=== PATIENT | female | born 1945 | race Caucasian/White ===

== ENCOUNTER 2020-10-28 20:24 | Emergency (ER) | payer MEDICARE, MEDICAID ==
[2020-10-28] MEDS ORDERED: Fluconazole 100 MG Tab PO ONE (20:51)
[2020-10-28] MEDS ORDERED: Famotidine 20 MG Tab PO ONE (20:52)
--- NOTE | 2020-10-28 21:38 | EDM.PDOC ---
ED HPI GENERAL MEDICAL PROBLEM - General Stated Complaint: POSSIBLE UTI Time Seen by Provider: 10/28/20 20:25 Source of Information: Reports: Patient History Limitations: Reports: No Limitations - History of Present Illness INITIAL COMMENTS - FREE TEXT/NARRATIVE: Pt. presents to ER with complaints of burning with urination that has been going on for several weeks. Pt. states that she has a history of UTIs in the past, unknown when the last time was. She states that the urine is malodorous and dark in color. She states that she feels chilled, but has not been checking her temp. Pt. denies any nausea, vomiting, or diarrhea. Pt. was treated for a sinus infection with doxycycline earlier in the month. Pt. states that she has also been experiencing intermittent acidic taste in her mouth and burning in her throat. She states she states that this has been going on for months and has not addressed it with her PCP. She states that she takes water and baking soda sometimes for it and states that it helps occasionally. She states that she has not taken any over the counter medications for GERD or acid reflux. Pt. denies any substernal chest pain, jaw, arm, neck or back pain. No diaphoresis. No lightheadedness or palpitations. Complains of intermittent headache. Denies any syncope or vertigo. No bloody stools. Onset: Today Onset Date: 10/28/20 - Related Data Allergies Allergy/AdvReac Type Severity Reaction Status Date / Time Penicillins Allergy Diarrhea Verified 10/28/20 20:34 ED ROS GENERAL - Review of Systems Review Of Systems: See Below Constitutional: Reports: No Symptoms HEENT: Reports: No Symptoms Respiratory: Reports: No Symptoms Cardiovascular: Reports: No Symptoms Endocrine: Reports: No Symptoms GI/Abdominal: Reports: Other (See HPI) : Reports: Dysuria Musculoskeletal: Reports: No Symptoms Skin: Reports: No Symptoms Neurological: Reports: No Symptoms Psychiatric: Reports: No Symptoms Hematologic/Lymphatic: Reports: No Symptoms Immunologic: Reports: No Symptoms ED EXAM, GENERAL - Physical Exam Exam: See Below Exam Limited By: No Limitations General Appearance: Alert, WD/WN, No Apparent Distress Head: Atraumatic, Normocephalic Neck: Normal Inspection, Supple, Non-Tender, Full Range of Motion Respiratory/Chest: No Respiratory Distress, Lungs Clear, Normal Breath Sounds, No Accessory Muscle Use, Chest Non-Tender Cardiovascular: Normal Peripheral Pulses, Regular Rate, Rhythm, No Edema, No JVD GI/Abdominal: Soft, Non-Tender, No Distention, No Mass (Female) Exam: Other (erythema to labia majora and scant amount of white, curd-like discharge noted.) Extremities: Normal Inspection, Normal Range of Motion, Non-Tender, No Pedal Edema, Normal Capillary Refill Course - Orders/Labs/Meds Meds: Medications Discontinued Medications Generic Name Dose Route Start Last Admin Trade Name Louis PRN Reason Stop Dose Admin Famotidine 20 mg 10/28/20 20:52 10/28/20 20:58 Famotidine 20 Mg Tab PO 10/28/20 20:53 20 mg ONETIME ONE Administration Fluconazole 150 mg 10/28/20 20:51 10/28/20 20:58 Fluconazole 100 Mg Tab PO 10/28/20 20:52 150 mg ONETIME ONE Administration Departure - Departure Time of Disposition: 21:15 Disposition: Home, Self-Care 01 Clinical Impression: Vulvovaginal candidiasis - Discharge Information Instructions: Vaginal Yeast Infection, Adult Referrals: Rogelio Dover [facility] [Primary Care Provider] - - Assessment/Plan Plan: The dose of diflucan we gave you should take care of the yeast infection. Pepcid 20mg twice daily. Recheck in clinic in 7-10 days, sooner if not gradually improving.
== END 2020-10-28 21:06 | disposition home or self-care (01) ==
LOC: VM.ED 20:24
DX: B37.3 Candidiasis of vulva and vagina (principal); Z88.0 Allergy status to penicillin
CPT/HCPCS: 81002; 99283; A9270

== ENCOUNTER 2020-12-09 18:00 | Emergency (ER) | payer MEDICARE, MEDICAID ==
--- NOTE | 2020-12-09 19:21 | EDM.PDOC ---
ED HPI GENERAL MEDICAL PROBLEM - General Chief Complaint: General Stated Complaint: INFECTION Time Seen by Provider: 12/09/20 19:00 Source of Information: Reports: Patient History Limitations: Reports: No Limitations - History of Present Illness INITIAL COMMENTS - FREE TEXT/NARRATIVE: Patient presents to the ER for concern for infection. She states she has had frontal headaches for a couple of months that do respond to tylenol and motrin and marcy pot rinses. 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 She has been eating and drinking well. No weight changes. NO covid concerns. and has had one of her two covid vaccines. REfuses the second one She takes anxiety medications and has not changed these. She recently saw a medical provider for some lower abdominal discomfort, had a vaginal exam, was told she had a yeast infection and has been treating this. She had a urine done at the time and was told it was normal. She complains of generalized fatigue and malaise She is concerned that she has an infection somewhere. SHe does have problems regulating her temperature but no fevers. She denies any new problems tonight, but is tired of dealing with it and feels more testing is needed. Denies drug or alcohol use, presents to the ED alone for evaluation Onset: Gradual Duration: Week(s): Improves with: Reports: None Worsens with: Reports: None Associated Symptoms: Reports: Fever/Chills, Headaches, Weakness - Related Data Allergies Allergy/AdvReac Type Severity Reaction Status Date / Time Penicillins Allergy Diarrhea Verified 12/09/20 18:59 Home Meds: Home Meds Citalopram [Citalopram HBr] 40 mg PO DAILY 10/28/20 [History] Meloxicam 15 mg PO DAILY 12/09/20 [History] Past Medical History Gastrointestinal History: Reports: GERD Psychiatric History: Reports: Depression - Past Surgical History Female Surgical History: Reports: Other (See Below) (laparoscopy for endometriosis) Social & Family History - Tobacco Use Tobacco Use Status *Q: Never Tobacco User - Alcohol Use Alcohol Use History: No Alcohol Use in Last Twelve Months: No - Recreational Drug Use Recreational Drug Use: No Drug Use in Last 12 Months: No ED ROS GENERAL - Review of Systems Review Of Systems: See Below Constitutional: Reports: Chills, Malaise, Weakness, Fatigue. Denies: Night Sweats, Decreased Appetite, Weight Loss, Weight Gain HEENT: Reports: Sinus Problem. Denies: Dental Pain, Ear Discharge, Ear Pain, Nose Pain, Throat Pain, Throat Swelling Respiratory: Denies: Shortness of Breath, Wheezing, Pleuritic Chest Pain, Cough, Sputum, Hemoptysis Cardiovascular: Denies: Chest Pain, Claudication, Dyspnea on Exertion, Edema, Lightheadedness Endocrine: Reports: Fatigue. Denies: Polydypsia, Polyuria GI/Abdominal: Reports: Abdominal Pain. Denies: Anorexia, Black Stool, Bloody Stool, Diarrhea, Hematemesis, Hematochezia, Nausea, Vomiting : Reports: Dysuria, Frequency, Urgency. Denies: Discharge, Irregular Menses, Urinary Retention Musculoskeletal: Reports: Muscle Pain Skin: Reports: No Symptoms Neurological: Reports: Confusion, Dizziness, Headache. Denies: Difficulty Walking Psychiatric: Reports: Anxiety Hematologic/Lymphatic: Denies: Anemia, Easy Bleeding, Easy Bruising ED EXAM, GENERAL - Physical Exam Exam: See Below Exam Limited By: No Limitations General Appearance: Alert, WD/WN, Anxious, Other (able to answer questions, appears to have capacity, cooperative) Eye Exam: Bilateral Eye: EOMI, Normal Inspection, PERRL Ear Exam: Bilateral Ear: Auricle Normal, Canal Normal, TM normal Nose: Normal Inspection, Normal Mucosa, No Blood Throat/Mouth: Normal Inspection, Normal Lips, Normal Teeth, Normal Oropharynx, Normal Voice Head: Atraumatic, Normocephalic Neck: Normal Inspection, Supple, Non-Tender, Full Range of Motion. No: Lymphad enopathy (R), Thyromegaly Respiratory/Chest: No Respiratory Distress, Lungs Clear, Normal Breath Sounds, No Accessory Muscle Use, Chest Non-Tender Cardiovascular: Normal Peripheral Pulses, Regular Rate, Rhythm, No Murmur GI/Abdominal: Normal Bowel Sounds, Soft, Non-Tender, No Mass Back Exam: Normal Inspection, Full Range of Motion. No: CVA Tenderness (L), CVA Tenderness (R) Extremities: Normal Inspection, Normal Range of Motion, Non-Tender, No Pedal Edema, Normal Capillary Refill Neurological: Alert, Oriented, CN II-XII Intact, Normal Cognition, Normal Gait, No Motor/Sensory Deficits, Other (normal finger to nose with eyes closed, negative pronator drift, normal thumb to finger opposition bilat, normal rapidly alternating movements, normal stength in the upper and lower extremities, normal heel to kuo, normal speech, normal pauline and plantar flexion. no nystagmus) Psychiatric: Anxious, Other (difficult to keep on track, displays paranoia, flight of ideas. ) Skin Exam: Warm, Dry, Intact #1 Interpretation EKG Date: 12/09/20 Time: 20:43 Rhythm: NSR Rate (Beats/Min): 73 [place]: Normal P-Wave: Present QRS: Normal ST-T: Normal QT: Normal Comparison: NA - No Prior EKG Course - Vital Signs Last Recorded V/S: Last Vital Signs Temp 36.7 C 12/09/20 18:35 Pulse 89 12/09/20 18:35 Resp 14 12/09/20 18:35 BP 159/97 H 12/09/20 18:35 Pulse Ox 95 12/09/20 18:35 - Orders/Labs/Meds Orders: Active Orders 24 hr Category Date Time Status EKG 12 Lead [EKG Documentation Completion] [RC] STAT Care 12/09/20 20:31 Active AMMONIA [REF] Stat Lab 12/09/20 19:26 Received Labs: Laboratory Tests 12/09/20 12/09/20 12/09/20 Range/Units 19:26 19:26 19:26 WBC 6.5 (4.0-10.0) x10^3/uL RBC 4.17 (4.00-5.50) x10^6/uL Hgb 12.9 (12.0-16.0) g/dL Hct 38.7 (33.0-47.0) % MCV 92.8 (78.0-93.0) fL MCH 30.9 (26.0-32.0) pg MCHC 33.3 (32.0-36.0) g/dL RDW Coeff of Luke 13.3 (10.0-15.0) % Plt Count 320 (130-400) x10^3/uL Neut % (Auto) 51.2 (50.0-80.0) % Lymph % (Auto) 32.0 (25.0-50.0) % [place] % (Auto) 10.6 (2.0-11.0) % Eos % (Auto) 4.7 H (0.0-4.0) % Baso % (Auto) 1.5 H (0.2-1.2) % Sodium 139 (136-145) mmol/L Potassium 3.8 (3.5-5.1) mmol/L Chloride 103 (98-107) mmol/L Carbon Dioxide 29 (21-32) mmol/L Anion Gap 10.8 (5-15) mmol/L BUN 21 H (7-18) mg/dL Creatinine 0.9 (0.55-1.02) mg/dL Est Cr Clr Drug Dosing TNP Estimated GFR (MDRD) > 60 Glucose 98 (70-99) mg/dL Lactic Acid 0.7 (0.4-2.0) mmol/L Calcium 8.7 (8.5-10.1) mg/dL Corrected Calcium 8.9 (8.5-10.1) mg/dL Magnesium 2.0 (1.8-2.4) mg/dL Total Bilirubin 0.1 L (0.2-1.0) mg/dL AST 16 (15-37) U/L ALT 23 (14-59) U/L Alkaline Phosphatase 83 (46-116) U/L C-Reactive Protein 0.4 (<=0.9) mg/dL Total Protein 7.6 (6.4-8.2) g/dL Albumin 3.7 (3.4-5.0) g/dL Globulin 3.9 Albumin/Globulin Ratio 0.95 TSH, Ultra Sensitive (0.358-3.74) uIU/mL Urine Color (YELLOW) Urine Appearance (CLEAR) Urine pH (5.0-8.0) Ur Specific [place] Urine Protein (NEGATIVE) mg/dL Urine Glucose (UA) (NEGATIVE) mg/dL Urine Ketones (NEGATIVE) mg/dL Urine Occult Blood (NEGATIVE) Urine Nitrite (NEGATIVE) Urine Bilirubin (NEGATIVE) Urine Urobilinogen (0.2) EU/dL Ur Leukocyte Esterase (NEGATIVE) Urine RBC (NOT SEEN) /HPF Urine WBC (NOT SEEN) /HPF Ur Squamous Epith Cells (NOT SEEN) /HPF Urine Bacteria (NOT SEEN) /HPF Urine Mucus (NOT SEEN) /LPF Urine Opiates Screen (NEGATIVE) Ur Buprenorphine Scrn (NEGATIVE) Ur Oxycodone Screen (NEGATIVE) Urine Methadone Screen (NEGATIVE) Ur Barbiturates Screen (NEGATIVE) Ur Phencyclidine Scrn (NEGATIVE) Ur Amphetamine Screen (NEGATIVE) U Methamphetamines Scrn (NEGATIVE) Urine MDMA Screen (NEGATIVE) U Benzodiazepines Scrn (NEGATIVE) U Cocaine Metab Screen (NEGATIVE) U Marijuana (THC) Screen (NEGATIVE) Ethyl Alcohol < 3 (0-3) mg/dL 12/09/20 12/09/20 12/09/20 Range/Units 19:26 19:45 19:45 WBC (4.0-10.0) x10^3/uL RBC (4.00-5.50) x10^6/uL Hgb (12.0-16.0) g/dL Hct (33.0-47.0) % MCV (78.0-93.0) fL MCH (26.0-32.0) pg MCHC (32.0-36.0) g/dL RDW Coeff of Luke (10.0-15.0) % Plt Count (130-400) x10^3/uL Neut % (Auto) (50.0-80.0) % Lymph % (Auto) (25.0-50.0) % [place] % (Auto) (2.0-11.0) % Eos % (Auto) (0.0-4.0) % Baso % (Auto) (0.2-1.2) % Sodium (136-145) mmol/L Potassium (3.5-5.1) mmol/L Chloride (98-107) mmol/L Carbon Dioxide (21-32) mmol/L Anion Gap (5-15) mmol/L BUN (7-18) mg/dL Creatinine (0.55-1.02) mg/dL Est Cr Clr Drug Dosing Estimated GFR (MDRD) Glucose (70-99) mg/dL Lactic Acid (0.4-2.0) mmol/L Calcium (8.5-10.1) mg/dL Corrected Calcium (8.5-10.1) mg/dL Magnesium (1.8-2.4) mg/dL Total Bilirubin (0.2-1.0) mg/dL AST (15-37) U/L ALT (14-59) U/L Alkaline Phosphatase (46-116) U/L C-Reactive Protein (<=0.9) mg/dL Total Protein (6.4-8.2) g/dL Albumin (3.4-5.0) g/dL Globulin Albumin/Globulin Ratio TSH, Ultra Sensitive 0.899 (0.358-3.74) uIU/mL Urine Color [place] H (YELLOW) Urine Appearance Clear (CLEAR) Urine pH 5.0 (5.0-8.0) Ur Specific [place] 1.025 Urine Protein Negative (NEGATIVE) mg/dL Urine Glucose (UA) Negative (NEGATIVE) mg/dL Urine Ketones Negative (NEGATIVE) mg/dL Urine Occult Blood Negative (NEGATIVE) Urine Nitrite Positive H (NEGATIVE) Urine Bilirubin Negative (NEGATIVE) Urine Urobilinogen 0.2 (0.2) EU/dL Ur Leukocyte Esterase Negative (NEGATIVE) Urine RBC 0-5 (NOT SEEN) /HPF Urine WBC 0-5 (NOT SEEN) /HPF Ur Squamous Epith Cells Few H (NOT SEEN) /HPF Urine Bacteria Few H (NOT SEEN) /HPF Urine Mucus Not seen (NOT SEEN) /LPF Urine Opiates Screen Negative (NEGATIVE) Ur Buprenorphine Scrn Negative (NEGATIVE) Ur Oxycodone Screen Negative (NEGATIVE) Urine Methadone Screen Negative (NEGATIVE) Ur Barbiturates Screen Negative (NEGATIVE) Ur Phencyclidine Scrn Negative (NEGATIVE) Ur Amphetamine Screen Negative (NEGATIVE) U Methamphetamines Scrn Negative (NEGATIVE) Urine MDMA Screen Negative (NEGATIVE) U Benzodiazepines Scrn Negative (NEGATIVE) U Cocaine Metab Screen Negative (NEGATIVE) U Marijuana (THC) Screen Negative (NEGATIVE) Ethyl Alcohol (0-3) mg/dL - Re-Assessments/Exams Free Text/Narrative Re-Assessment/Exam: 12/09/20 19:34 Pateint appears to be anxious, some flight of ideas, concern for organic cause of problems versus mood disorder or dementia. No known history of this. Allowed blood draw. Became agitated at CT and refused it after she insisted on wanting one. Managed to convince her to get one. no appears paranoid thoughts, anxious. 12/09/20 20:09 ammonia level is pending. Testing is negative. Concern for some dementia with behavior disturbance. Did reach out to her daughter, listed as an emergency contact. Discussed her awareness of her mother's situation and concerns 12/09/20 20:57 Departure - Departure Time of Disposition: 20:45 Disposition: Home, Self-Care 01 Clinical Impression: Frequent headaches, Fatigue - Discharge Information *PRESCRIPTION DRUG MONITORING PROGRAM REVIEWED*: Not Applicable *COPY OF PRESCRIPTION DRUG MONITORING REPORT IN PATIENT RANI: Not Applicable Instructions: General Headache Without Cause, Fatigue, Weakness Referrals: PCP,None [Primary Care Provider] - Forms: ED Department Discharge Additional Instructions: Testing today did not reveal any type of infection. No signs of stroke. White blood cells, liver function, kidney function, electrolytes and thyroid function were normal along with urine and a head CT. Close follow up with a physician for continue concerns and ailments is recommended. Sepsis Event Note (ED) - Evaluation Sepsis Screening Result: No Definite Risk - Focused Exam Vital Signs: Vital Signs Temp Pulse Resp BP Pulse Ox 12/09/20 18:35 36.7 C 89 14 159/97 H 95 - My Orders Last 24 Hours: My Active Orders 12/09/20 19:26 AMMONIA [REF] Stat 12/09/20 20:31 EKG 12 Lead [EKG Documentation Completion] [RC] STAT - Assessment/Plan Last 24 Hours: My Active Orders 12/09/20 19:26 AMMONIA [REF] Stat 12/09/20 20:31 EKG 12 Lead [EKG Documentation Completion] [RC] STAT
[2020-12-09 19:53] LABS: CHLORIDE,CL 103 mmol/L (98-107); SODIUM,NA 139 mmol/L (136-145)
[2020-12-09 20:01] LABS: ANION GAP 10.8 mmol/L (5-15)
[2020-12-09 20:02] LABS: BARBITURATE SCREEN,URINE NEGATIVE (NEGATIVE); BENZODIAZEPINES SCREEN,URINE NEGATIVE (NEGATIVE); METHAMPHETAMINE SCREEN, URINE NEGATIVE (NEGATIVE); THC SCREEN,URINE 50 NG/ML NEGATIVE (NEGATIVE)
--- NOTE | 2020-12-09 20:20 | CT ---
[id number] CT/CT Head WO IV EXAM: CT Head WO IV CLINICAL DATA: CHANGE IN MENTAL STATUS COMPARISON: CORRELATION IS MADE WITH AUGUST 19, 2020 FINDINGS: There is no mass or mass effect. There is motion artifact There is no hemorrhage or hydrocephalus. There are no extra-axial fluid collections. There are no sites of abnormal attenuation. IMPRESSION: NO PLAIN CT EVIDENCE OF ACUTE INTRACRANIAL PROCESS. Kevin Edmonds MD 12/09/202018 Thank you for allowing us to participate in the care of your patient.
== END 2020-12-09 20:53 | disposition home or self-care (01) ==
LOC: VM.ED 18:00
DX: R51.9 Headache, unspecified (principal); R53.83 Other fatigue; Z88.0 Allergy status to penicillin
CPT/HCPCS: 36415; 70450; 80053; 80305-QW; 80307; 81001; 82140; 83605; 83735; 84443; 85025; 86140; 93005; 93010; 99284; 99284-25

== ENCOUNTER 2021-05-16 12:05 | Emergency (ER) | payer MEDICARE, MEDICAID ==
[2021-05-16] MEDS ORDERED: Famotidine 20 MG/2 ML SDV IVPUSH ONE (12:26)
[2021-05-16] MEDS ORDERED: Sodium Chloride 0.9% 10 ML Syringe FLUSH PRN (12:26)
[2021-05-16] MEDS ORDERED: Sodium Chloride 0.9% 1,000 ML IV ONE (12:28)
--- NOTE | 2021-05-16 12:36 | EDM.PDOC ---
ED HPI GENERAL MEDICAL PROBLEM - General Chief Complaint: General Stated Complaint: cough, body aches, shortness of breath, sinus congestion Time Seen by Provider: 05/16/21 12:25 Source of Information: Reports: Patient, Family History Limitations: Reports: No Limitations - History of Present Illness INITIAL COMMENTS - FREE TEXT/NARRATIVE: Patient is sent to the ED from the urgent care clinic for ongoing illness that is worsening for the last 3 weeks. Patient states that she started to get ill with sinus congestion like allergies at that time. took over the counter allergy medication and it was helping. She states that it started to make her head feel full like sinus congestion and she took over the counter sinus decongestants that help with the pressure and the dizziness. That was about two weeks ago and then she developed night sweats, cough, body aches. She has been taking ibuprofen ( along with her meloxicam) for this at least 4 times a day for the last 1-2 weeks. Three days ago she became short of breath with acitivity to the point that she is notably winded with short activity. She decided to go to the clinic today. She did get one covid vaccine last fall, did not get the second one. Her grandson has been ill with a gi illness in the last week, but she is having normal stools. Has not been able to eat due to lack of appetite, no vomiting. Decreased oral intake. O2 sats at the clinic 90% on room air. No known lung disease, never a smoker Onset Date: 04/25/21 Duration: Week(s):, Getting Worse (over the last three days with increased dysnpea with activity) Quality: Reports: Pressure (in the sinuses) Severity: Moderate Worsens with: Reports: Other (activity, increasing dysnpea) Associated Symptoms: Reports: Cough, Headaches, Loss of Appetite, Malaise, Shortness of Breath, Other (dizziness) Treatments BALLET SOLOIST: Reports: NSAIDS, Other Medication(s) (cold and allergy medications) Throat Pain Score (Numeric/FACES): 3 Headache Pain Score (Numeric/FACES): 3 - Related Data Allergies Allergy/AdvReac Type Severity Reaction Status Date / Time Penicillins Allergy Diarrhea Verified 05/16/21 12:17 Home Meds: Home Meds Citalopram [Citalopram HBr] 40 mg PO DAILY 10/28/20 [History] Meloxicam 15 mg PO DAILY 12/09/20 [History] Albuterol [Proventil HFA] 2 puff INH Q4H PRN #1 ea 05/16/21 [Rx] Albuterol [Proventil Neb Soln] 1 ampule NEB Q4HRRT #30 ml 05/16/21 [Rx] Benzonatate [Tessalon Perles] 100 mg PO TID PRN #30 cap 05/16/21 [Rx] Past Medical History Gastrointestinal History: Reports: GERD Psychiatric History: Reports: Depression - Past Surgical History Female Surgical History: Reports: Other (See Below) Social & Family History - Tobacco Use Tobacco Use Status *Q: Never Tobacco User - Alcohol Use Alcohol Use History: No Alcohol Use in Last Twelve Months: No - Recreational Drug Use Recreational Drug Use: No Drug Use in Last 12 Months: No ED ROS GENERAL - Review of Systems Review Of Systems: See Below Constitutional: Reports: Malaise, Weakness, Fatigue, Night Sweats HEENT: Reports: Sinus Problem. Denies: Hearing Loss, Nose Pain, Throat Swelling, Vertigo, Vision Change Respiratory: Reports: Shortness of Breath, Cough. Denies: Sputum Cardiovascular: Reports: Dyspnea on Exertion, Lightheadedness Endocrine: Reports: Fatigue GI/Abdominal: Reports: Abdominal Pain (epigastric irritaiton), Anorexia, Decrea sed Appetite. Denies: Black Stool, Bloody Stool, Diarrhea, Hematemesis, Hematochezia, Vomiting Musculoskeletal: Reports: Muscle Pain (difuse) Skin: Reports: No Symptoms Neurological: Reports: Dizziness Psychiatric: Reports: No Symptoms Hematologic/Lymphatic: Reports: No Symptoms Immunologic: Reports: No Symptoms ED EXAM, GENERAL - Physical Exam Exam: See Below Exam Limited By: No Limitations General Appearance: Alert, WD/WN, No Apparent Distress Eye Exam: Bilateral Eye: EOMI, PERRL Ears: Normal External Exam, Normal Canal, Hearing Grossly Normal, Normal TMs Nose: Normal Inspection, Normal Mucosa, No Blood Throat/Mouth: Normal Inspection, Normal Lips, Normal Oropharynx, Normal Voice, No Airway Compromise, Other (dry mucous membranes) Head: Sinus Tenderness Respiratory/Chest: Chest Non-Tender, Other (increased work of breathing, diminished in bases). No: Rales, Rhonchi, Wheezing Cardiovascular: Normal Peripheral Pulses, Regular Rate, Rhythm, No Edema GI/Abdominal: Normal Bowel Sounds, Soft, Non-Tender, No Organomegaly, No Distention, No Abnormal Bruit. No: Rigid Extremities: Normal Inspection, Normal Range of Motion, Non-Tender, No Pedal Edema Neurological: Alert, Oriented, CN II-XII Intact, Normal Cognition #1 Interpretation EKG Date: 05/16/21 Time: 12:45 Rhythm: NSR Rate (Beats/Min): 85 [place]: Normal P-Wave: Present QRS: Normal ST-T: Other (slight elevation in ST in V3, flat in all other leads.) Course - Vital Signs Last Recorded V/S: Last Vital Signs Temp 36.7 C 05/16/21 14:30 Pulse 86 05/16/21 14:45 Resp 22 H 05/16/21 14:45 BP 178/92 H 05/16/21 14:45 Pulse Ox 93 L 05/16/21 14:45 - Orders/Labs/Meds Orders: Active Orders 24 hr Category Date Time Status Incentive Spirometry [RT Incentive Spirometry] [RC] Care 05/16/21 14:03 Active Q1HWA Vital Signs [RC] Q15M Care 05/16/21 13:43 Active Head wo Cont [CT] Stat Exams 05/16/21 13:42 Ordered EPINEPHrine [Adrenalin] Med 05/16/21 13:43 Active 0.3 mg IM ASDIRECTED PRN Famotidine [Pepcid] Med 05/16/21 13:43 Active 20 mg IVPUSH ASDIRECTED PRN Sodium Chloride 0.9% [Saline Flush] Med 05/16/21 12:26 Active 10 ml FLUSH ASDIRECTED PRN Sodium Chloride 0.9% [Saline Flush] Med 05/16/21 13:45 Active 30 ml FLUSH ASDIRECTED diphenhydrAMINE [Benadryl] Med 05/16/21 13:43 Active 50 mg IVPUSH ASDIRECTED PRN methylPREDNISolone Sod Succ [Solu-MEDROL] Med 05/16/21 13:43 Active 125 mg IVPUSH ASDIRECTED PRN Peripheral IV Insertion Adult [OM.PC] Routine Oth 05/16/21 12:26 Ordered Medication Orders Diphenhydramine HCl (Diphenhydramine 50 Mg/Ml Sdv) 50 mg IVPUSH ASDIRECTED PRN PRN Reason: hypersensitivity reaction Epinephrine HCl (Epinephrine 1 Mg/1 Ml Amp) 0.3 mg IM ASDIRECTED PRN PRN Reason: hypersensitivity reaction Famotidine (Famotidine 20 Mg/2 Ml Sdv) 20 mg IVPUSH ASDIRECTED PRN PRN Reason: hypersensitivity reaction Methylprednisolone Sodium Succinate (Methylprednisolone Sodium Succinate 125 Mg/2 Ml Sdv) 125 mg IVPUSH ASDIRECTED PRN PRN Reason: hypersensitivity reaction Sodium Chloride (Sodium Chloride 0.9% 10 Ml Syringe) 10 ml FLUSH ASDIRECTED PRN PRN Reason: Keep Vein Open Sodium Chloride (Sodium Chloride 0.9% 10 Ml Syringe) 30 ml FLUSH ASDIRECTED PANDA Labs: Laboratory Tests 05/16/21 05/16/21 05/16/21 Range/Units 12:31 12:41 12:41 WBC 6.7 (4.0-10.0) x10^3/uL RBC 3.95 L (4.00-5.50) x10^6/uL Hgb 11.8 L (12.0-16.0) g/dL Hct 35.4 (33.0-47.0) % MCV 89.6 (78.0-93.0) fL MCH 29.9 (26.0-32.0) pg MCHC 33.3 (32.0-36.0) g/dL RDW Coeff of Luke 13.5 (10.0-15.0) % Plt Count 245 (130-400) x10^3/uL Immature Gran % (Auto) 0.10 (0.00-0.43) % Neut % (Auto) 75.5 (50.0-80.0) % Lymph % (Auto) 16.8 L (25.0-50.0) % Winn % (Auto) 6.7 (2.0-11.0) % Eos % (Auto) 0.6 (0.0-4.0) % Baso % (Auto) 0.3 (0.2-1.2) % Neut # (Auto) 5.1 (1.8-7.7) x10^3/uL Lymph # (Auto) 1.1 (1.0-4.8) x10^3/uL Winn # (Auto) 0.5 (0.0-0.8) x10^3/uL Eos # (Auto) 0.0 (0.0-0.5) x10^3/uL Baso # (Auto) 0.0 (0.0-0.2) x10^3/uL Immature Gran # (Auto) 0.01 (0.00-0.07) x10^3/uL D-Dimer, Quantitative 1.06 H (<=0.58) mg/LFEU Sodium (136-145) mmol/L Potassium (3.5-5.1) mmol/L Chloride (98-107) mmol/L Carbon Dioxide (21-32) mmol/L Anion Gap (5-15) mmol/L BUN (7-18) mg/dL Creatinine (0.55-1.02) mg/dL Est Cr Clr Drug Dosing Estimated GFR (MDRD) Glucose (70-99) mg/dL Lactic Acid (0.4-2.0) mmol/L Calcium (8.5-10.1) mg/dL Corrected Calcium (8.5-10.1) mg/dL Total Bilirubin (0.2-1.0) mg/dL AST (15-37) U/L ALT (14-59) U/L Alkaline Phosphatase (46-116) U/L Troponin I High Sens (<=51) ng/L C-Reactive Protein (<=0.9) mg/dL NT-Pro-B Natriuret Pep (<=125) pg/mL Total Protein (6.4-8.2) g/dL Albumin (3.4-5.0) g/dL Globulin Albumin/Globulin Ratio Influenza Type A RNA Negative (NEGATIVE) RSV RNA (INAAT) Negative (NEGATIVE) Influenza Type B RNA Negative (NEGATIVE) SARS-CoV-2 RNA (NIYAH) Positive H (NEGATIVE) 05/16/21 05/16/21 05/16/21 Range/Units 12:41 12:41 12:41 WBC (4.0-10.0) x10^3/uL RBC (4.00-5.50) x10^6/uL Hgb (12.0-16.0) g/dL Hct (33.0-47.0) % MCV (78.0-93.0) fL MCH (26.0-32.0) pg MCHC (32.0-36.0) g/dL RDW Coeff of Luke (10.0-15.0) % Plt Count (130-400) x10^3/uL Immature Gran % (Auto) (0.00-0.43) % Neut % (Auto) (50.0-80.0) % Lymph % (Auto) (25.0-50.0) % Winn % (Auto) (2.0-11.0) % Eos % (Auto) (0.0-4.0) % Baso % (Auto) (0.2-1.2) % Neut # (Auto) (1.8-7.7) x10^3/uL Lymph # (Auto) (1.0-4.8) x10^3/uL Winn # (Auto) (0.0-0.8) x10^3/uL Eos # (Auto) (0.0-0.5) x10^3/uL Baso # (Auto) (0.0-0.2) x10^3/uL Immature Gran # (Auto) (0.00-0.07) x10^3/uL D-Dimer, Quantitative (<=0.58) mg/LFEU Sodium 142 (136-145) mmol/L Potassium 3.6 (3.5-5.1) mmol/L Chloride 104 (98-107) mmol/L Carbon Dioxide 28 (21-32) mmol/L Anion Gap 13.6 (5-15) mmol/L BUN 13 (7-18) mg/dL Creatinine 0.8 (0.55-1.02) mg/dL Est Cr Clr Drug Dosing TNP Estimated GFR (MDRD) > 60 Glucose 127 H (70-99) mg/dL Lactic Acid 1.1 (0.4-2.0) mmol/L Calcium 9.0 (8.5-10.1) mg/dL Corrected Calcium 10.0 (8.5-10.1) mg/dL Total Bilirubin 0.3 (0.2-1.0) mg/dL AST 38 H (15-37) U/L ALT 32 (14-59) U/L Alkaline Phosphatase 82 (46-116) U/L Troponin I High Sens 11 (<=51) ng/L C-Reactive Protein 23.5 H (<=0.9) mg/dL NT-Pro-B Natriuret Pep 272 H (<=125) pg/mL Total Protein 6.9 (6.4-8.2) g/dL Albumin 2.7 L (3.4-5.0) g/dL Globulin 4.2 Albumin/Globulin Ratio 0.64 Influenza Type A RNA (NEGATIVE) RSV RNA (INAAT) (NEGATIVE) Influenza Type B RNA (NEGATIVE) SARS-CoV-2 RNA (NIYAH) (NEGATIVE) Meds: Medications Generic Name Dose Route Start Last Admin Trade Name Freq PRN Reason Stop Dose Admin Diphenhydramine HCl 50 mg 05/16/21 13:43 Diphenhydramine 50 Mg/Ml Sdv IVPUSH ASDIRECTED PRN hypersensitivity reaction Epinephrine HCl 0.3 mg 05/16/21 13:43 Epinephrine 1 Mg/1 Ml Amp IM ASDIRECTED PRN hypersensitivity reaction Famotidine 20 mg 05/16/21 13:43 Famotidine 20 Mg/2 Ml Sdv IVPUSH ASDIRECTED PRN hypersensitivity reaction Methylprednisolone Sodium Succinate 125 mg 05/16/21 13:43 Methylprednisolone Sodium Succinate 125 Mg/2 Ml Sdv IVPUSH ASDIRECTED PRN hypersensitivity reaction Sodium Chloride 10 ml 05/16/21 12:26 Sodium Chloride 0.9% 10 Ml Syringe FLUSH ASDIRECTED PRN Keep Vein Open Sodium Chloride 30 ml 05/16/21 13:45 Sodium Chloride 0.9% 10 Ml Syringe FLUSH ASDIRECTED PANDA Discontinued Medications Generic Name Dose Route Start Last Admin Trade Name Louis PRN Reason Stop Dose Admin Famotidine 20 mg 05/16/21 12:26 05/16/21 12:49 Famotidine 20 Mg/2 Ml Sdv IVPUSH 05/16/21 12:27 20 mg ONETIME ONE Administration Sodium Chloride 1,000 mls @ 999 mls/hr 05/16/21 12:28 05/16/21 12:50 Normal Saline IV 05/16/21 13:28 999 mls/hr ONETIME ONE Administration Bamlanivimab 700 mg/ 160 mls @ 310 mls/hr 05/16/21 13:43 05/16/21 14:34 Etesevimab 1,400 mg/ Sodium IV 05/16/21 14:13 310 mls/hr Chloride ONETIME ONE Administration Iopamidol 100 ml 05/16/21 14:20 05/16/21 14:35 Iopamidol 755 Mg/Ml 100 Ml Bottle IVPUSH 05/16/21 14:21 100 ml ONETIME ONE Administration Sucralfate 1 gm 05/16/21 12:30 05/16/21 13:06 Sucralfate Suspension 1 Gm/10 Ml Cup PO 05/16/21 12:51 Not Given Q10M [facility] - Radiology Interpretation Free Text/Narrative:: chest x-ray interpreted by radiology with patchy pulmonary infiltrates bilaterally. Likely infectious/inflammatory and can be seen with atypical pneumonia. Includes covid pneumonia. CT chest PE protocol with significant multifocal bilateral groundglass opacities compatible with history of clinical history of covid pneumonia. No pulmonary embolism interpreted by radiology Ct head without acute findings, interpreted by radiology - Re-Assessments/Exams Free Text/Narrative Re-Assessment/Exam: 05/16/21 12:48 Patient has been ill for several weeks with a change in the last three days. differential is broad with concern for covid and pneumonia being prevalent. Will check covid/flu/rsv due to lack of immunizations. trop, bnp, labs, chest x-ray will be done. Clinically dry with skin tenting on the hands and decreased appetite and stomach upset due to large doses of ibuprofen. Denies black or bloody stools. Has been taking her meloxicam and citalopram. Will give IV fluids, one liter bolus, pepcid 20 mg IVP and carafate 1 gram suspension po. 05/16/21 13:10 age adjusted ddimer makes VTE unlikely 05/16/21 13:15 Positive for COVID. will ambulate her to see if her sats go below 90% 05/16/21 13:49 Long 15 minute discussion with patient and her daughter. Estimate that she is day 3-5 of onset of new symptoms. She is ambulated in the room, pulse o2 does not drop below 91% with this. Discussed monoclonal antibodies and she agrees to infusion. Will get a head CT to rule out intracranial problem or serious sinus disease due to her instability with walking. She has been dizzy for two weeks and was able to ambulate and move all extremities, but stumbled a little with turning. No other neuro deficit,. Discussed nebulizers, incentive spirometry, proning, cough medications, quarantining and when to return. Is tachpyneic with ambulation but not hypoxic. Marked covid pneumonia on x-ray. Will get Chest CT with PE protocol to rule out PE, although unlikely due to going home and would need anticoagulation if positive . Family understands to quarantine with non vaccinated contacts and monitor for symptoms with vaccinated contacts. Told testing best at 5 days. Rest of testing negative 05/16/21 15:06 monoclonal antibody infused. Doing well. Sats 93%. Will continue to monitor. 05/16/21 15:24will discharge home, condition guarded with concern for worsening hypoxia and covid Departure - Departure Time of Disposition: 15:24 Disposition: Home, Self-Care 01 Condition: Fair Clinical Impression: COVID-19, Pneumonia due to 2019 novel coronavirus, Dizziness - Discharge Information *PRESCRIPTION DRUG MONITORING PROGRAM REVIEWED*: No *COPY OF PRESCRIPTION DRUG MONITORING REPORT IN PATIENT RANI: No Prescriptions: Albuterol [Proventil HFA] 2 puff INH Q4H PRN #1 ea PRN Reason: Shortness Of Breath Albuterol [Proventil Neb Soln] 1 ampule NEB Q4HRRT #30 ml Benzonatate [Tessalon Perles] 100 mg PO TID PRN #30 cap PRN Reason: Cough Instructions: Prone Position Therapy, How to Protect Yourself and Others - CDC (01/27/2021), What You Should Know About COVID-19 to Protect Yourself and Others - CDC, 10 Things You Can Do to Manage Your COVID-19 Symptoms at Home - [facility] (12/30/2020) Referrals: Judi Gaytan ARTERIAL EMBALMER [Primary Care Provider] - Forms: ED Department Discharge Additional Instructions: You need to go home and isolate from others. Wear a mask if you can not. you need to use your incentive spirometer every hour while awake for 10 repetitions. Use the albuterol nebulizer every 4 hours. You can use the rescue inhaler, two puffs, every 4 hours or as needed for cough and shortness of breath. Stay hydrated and try to take in some protein as these are essential for healing. Taking vitamin C, D and zinc can be helpful. If possible spend up to 12 hours a day in prone position ( on your stomach) . You were given monoclonal antibodies to fight the infection. You can picking machine operator helper a pulse oximeter at the drug store. REturn to the ED for oxygen that is< 90% and does not improve with rest. If you do not purchase one of these, return to the ED for increased shortness of breath, confusion. You are at high risk for worsening COVID pneumonia and complications. Use the tessalon perrles for cough or over the counter cough medications Sepsis Event Note (ED) - Focused Exam Vital Signs: Vital Signs Temp Pulse Resp BP Pulse Ox 05/16/21 14:45 86 22 H 178/92 H 93 L 05/16/21 14:30 36.7 C 22 H 173/90 H 93 L 05/16/21 12:08 36.6 C 90 28 H 163/89 H 90 L - My Orders Last 24 Hours: My Active Orders 05/16/21 12:26 Sodium Chloride 0.9% [Saline Flush] 10 ml FLUSH ASDIRECTED PRN Peripheral IV Insertion Adult [OM.PC] Routine 05/16/21 13:42 Head wo Cont [CT] Stat 05/16/21 13:43 Vital Signs [RC] Q15M EPINEPHrine [Adrenalin] 0.3 mg IM ASDIRECTED PRN Famotidine [Pepcid] 20 mg IVPUSH ASDIRECTED PRN diphenhydrAMINE [Benadryl] 50 mg IVPUSH ASDIRECTED PRN methylPREDNISolone Sod Succ [Solu-MEDROL] 125 mg IVPUSH ASDIRECTED PRN 05/16/21 13:45 Sodium Chloride 0.9% [Saline Flush] 30 ml FLUSH ASDIRECTED 05/16/21 14:03 Incentive Spirometry [RT Incentive Spirometry] [RC] Q1HWA - Assessment/Plan Last 24 Hours: My Active Orders 05/16/21 12:26 Sodium Chloride 0.9% [Saline Flush] 10 ml FLUSH ASDIRECTED PRN Peripheral IV Insertion Adult [OM.PC] Routine 05/16/21 13:42 Head wo Cont [CT] Stat 05/16/21 13:43 Vital Signs [RC] Q15M EPINEPHrine [Adrenalin] 0.3 mg IM ASDIRECTED PRN Famotidine [Pepcid] 20 mg IVPUSH ASDIRECTED PRN diphenhydrAMINE [Benadryl] 50 mg IVPUSH ASDIRECTED PRN methylPREDNISolone Sod Succ [Solu-MEDROL] 125 mg IVPUSH ASDIRECTED PRN 05/16/21 13:45 Sodium Chloride 0.9% [Saline Flush] 30 ml FLUSH ASDIRECTED 05/16/21 14:03 Incentive Spirometry [RT Incentive Spirometry] [RC] Q1HWA
[2021-05-16] MEDS: Sucralfate Suspension 1 GM/10 ML Cup PO SCH ×2 (12:49→13:06)
--- NOTE | 2021-05-16 13:12 | CR ---
[id number] RAD/RAD Chest PA or AP 1V EXAM: RAD Chest PA or AP 1V INDICATION: SHORTNESS OF BREATH. COMPARISON: None. DISCUSSION: Cardiomediastinal silhouette is normal in size and contour. Patchy pulmonary infiltrates bilaterally. No pneumothorax or pleural effusion. IMPRESSION: Patchy pulmonary infiltrates bilaterally. Findings are likely infectious/inflammatory as can be seen with atypical/brown pneumonia. This includes COVID pneumonia. Matty Kline DO 05/16/21 [id number] Thank you for allowing us to participate in the care of your patient.
[2021-05-16 13:14] LABS: CHLORIDE,CL 104 mmol/L (98-107); SODIUM,NA 142 mmol/L (136-145)
[2021-05-16 13:20] LABS: CORONAVIRUS COVID-19 NAA POSITIVE (NEGATIVE); RESPIRATORY SYNCYTIAL VIR NAA NEGATIVE (NEGATIVE)
[2021-05-16 13:20] LABS: ANION GAP 13.6 mmol/L (5-15)
[2021-05-16] MEDS ORDERED: methylPREDNISolone Sodium Succinate 125 MG/2 ML SDV IVPUSH PRN (13:43)
[2021-05-16] MEDS ORDERED: Famotidine 20 MG/2 ML SDV IVPUSH PRN (13:43)
[2021-05-16] MEDS ORDERED: diphenhydrAMINE 50 MG/ML SDV IVPUSH PRN (13:43)
[2021-05-16] MEDS ORDERED: Bamlanivimab 700 MG, ETESEVIMAB 1,400 MG in Sodium Chloride 0.9% 100 ML IV ONE (13:43)
[2021-05-16] MEDS ORDERED: EPINEPHrine 1 MG/1 ML Amp IM PRN (13:43)
[2021-05-16] MEDS ORDERED: Sodium Chloride 0.9% 10 ML Syringe FLUSH SCH (13:45)
[2021-05-16] MEDS ORDERED: Iopamidol 755 Mg/ML 100 ML Bottle IVPUSH ONE (14:20)
--- NOTE | 2021-05-16 15:08 | CT ---
[id number] CT/CTA Chest EXAM: CT ANGIOGRAM CHEST INDICATION: COVID, dizziness for 2 weeks, and new onset shortness of breath. COMPARISON: Chest radiograph same date. DISCUSSION: The pulmonary arteries are normal in appearance with no emboli identified. There are areas of peripheral predominant groundglass opacification and some which demonstrates mild associated consolidation throughout all lobes of both lungs compatible with the clinical history of COVID pneumonia. Mild nonspecific mediastinal adenopathy with accounts receivable representative subcarinal node measuring 25 x 12 mm and mild bilateral hilar adenopathy with a node or adjacent nodes in the right hilum measuring about 27 x 14 mm. Scattered atherosclerotic plaque in the aorta and its major branches. Moderate sliding type hiatus hernia. The liver demonstrates steatosis and possible nodular changes suggestive of chronic parenchymal disease. Cholecystectomy. Scattered diverticula of the colon without evidence of diverticulitis. No pleural or pericardial effusion. Normal heart size. The osseous structures are unremarkable. IMPRESSION: 1. Significant multifocal bilateral groundglass opacities compatible the clinical history of COVID pneumonia. 2. Negative for pulmonary embolism. Dandy Mcgee MD 05/16/21 [id number] Thank you for allowing us to participate in the care of your patient.
--- NOTE | 2021-05-16 15:22 | CT ---
[id number] CT/CT Head WO IV EXAM: NONCONTRAST HEAD CT INDICATION: COVID, DIZZINESS X2 WEEKS, NEW ONSET SHORTNESS OF COMPARISON: December 09, 2020. DISCUSSION: There is mild generalized atrophy. Mild multifocal white matter hypoattenuation is nonspecific, but generally ascribed to chronic small vessel ischemia. No mass effect or midline shift. No acute hemorrhage or extra-axial fluid collection. No acute territorial infarct is identified. A limited look at the orbits and paranasal sinuses is unremarkable. IMPRESSION: 1. No acute findings. Dandy Mcgee MD 05/16/21 [id number] Thank you for allowing us to participate in the care of your patient.
== END 2021-05-16 16:13 | disposition home or self-care (01) ==
LOC: VM.ED 12:05
DX: U07.1 COVID-19 (principal); J12.82 Pneumonia due to coronavirus disease 2019; R42 Dizziness and giddiness; Z88.0 Allergy status to penicillin
CPT/HCPCS: 0241U; 70450; 71045; 71275; 80053; 83605; 83880; 84484; 85025; 85379; 86140; 93005; 93010; 96374; 99284; 99285-25; A9270-GY; J3490; J7030; M0245; Q0245; Q9967

== ENCOUNTER 2022-11-10 19:25 | Emergency (ER) | payer MEDICARE, MEDICAID ==
[2022-11-10 20:02] LABS: APPEARANCE,URINE CLEAR (CLEAR); BILIRUBIN,URINE NEGATIVE (NEGATIVE); COLOR,URINE YELLOW (YELLOW); GLUCOSE,URINE NEGATIVE (NEGATIVE); KETONES,URINE NEGATIVE (NEGATIVE); LEUKOCYTE ESTERASE,URINE NEGATIVE (NEGATIVE); NITRITE,URINE NEGATIVE (NEGATIVE); OCCULT BLOOD,URINE NEGATIVE (NEGATIVE); PH,URINE 6.5 (5.0-8.0); PROTEIN,URINE NEGATIVE (NEGATIVE); UROBILINOGEN,URINE 0.2 EU/dL (0.2)
[2022-11-10] MEDS ORDERED: Take Home: Clindamycin HCl 150 MG Cap, 6 Cap Pack PO ONE (20:11)
== END 2022-11-10 20:31 | disposition home or self-care (01) ==
LOC: VM.ED 19:25
DX: J32.9 Chronic sinusitis, unspecified (principal); Z86.16 Personal history of COVID-19; Z88.0 Allergy status to penicillin
CPT/HCPCS: 81003; 99283; 99284; A9270-GY

== ENCOUNTER 2023-03-02 16:59 | Emergency (ER) | payer MEDICARE, MEDICAID ==
[2023-03-02] MEDS ORDERED: Aluminum Hydroxide/Magnesium Hydroxide/Simethicone Susp 30 ML Cup PO ONE (17:30)
[2023-03-02] MEDS ORDERED: Promethazine 6.25 MG/5 ML Liquid 10 ML UD Cup PO STA (17:35)
[2023-03-02 17:45] LABS: BASOPHILS PERCENT AUTO 0.6 % (0.2-1.2); EOSINOPHILS ABSOLUTE AUTO 0.2 x10^3/uL (0.0-0.5); EOSINOPHILS PERCENT AUTO 4.1 % (0.0-4.0); HEMATOCRIT 37.1 % (33.0-47.0); HEMOGLOBIN 12.2 g/dL (12.0-16.0); IMMATURE GRAN ABSOLUTE AUTO 0.01 x10^3/uL (0.00-0.07); LYMPHOCYTES ABSOLUTE AUTO 1.5 x10^3/uL (1.0-4.8); LYMPHOCYTES PERCENT AUTO 27.3 % (25.0-50.0); MEAN CORPUSCULAR HEMOGLOBIN 30.3 pg (26.0-32.0); MEAN CORPUSCULAR HGB CONC 32.9 g/dL (32.0-36.0); MEAN CORPUSCULAR VOLUME 92.3 fL (78.0-93.0); MONOCYTES ABSOLUTE AUTO 0.5 x10^3/uL (0.0-0.8); MONOCYTES PERCENT AUTO 8.6 % (2.0-11.0); NEUTROPHILS ABSOLUTE AUTO 3.2 x10^3/uL (1.8-7.7); NEUTROPHILS PERCENT AUTO 59.2 % (50.0-80.0); PLATELET COUNT,PLT 269 x10^3/uL (130-400); RED BLOOD CELL COUNT 4.02 x10^6/uL (4.00-5.50); WHITE BLOOD CELL COUNT,WBC 5.4 x10^3/uL (4.0-10.0)
[2023-03-02 17:50] LABS: APPEARANCE,URINE CLEAR (CLEAR); BILIRUBIN,URINE NEGATIVE (NEGATIVE); COLOR,URINE LIGHT YELLOW (YELLOW); GLUCOSE,URINE NEGATIVE (NEGATIVE); KETONES,URINE NEGATIVE (NEGATIVE); LEUKOCYTE ESTERASE,URINE NEGATIVE (NEGATIVE); NITRITE,URINE NEGATIVE (NEGATIVE); OCCULT BLOOD,URINE NEGATIVE (NEGATIVE); PH,URINE 6.5 (5.0-8.0); PROTEIN,URINE NEGATIVE (NEGATIVE); UROBILINOGEN,URINE 0.2 EU/dL (0.2)
[2023-03-02 18:01] LABS: A/G RATIO 0.91; ALANINE AMINOTRANSFERASE,ALT 20 U/L (14-59); ALBUMIN 3.2 g/dL (3.4-5.0); ALKALINE PHOSPHATASE 80 U/L (46-116); ASPARTATE AMNIOTRANSFERASE,AST 13 U/L (15-37); BILIRUBIN TOTAL 0.2 mg/dL (0.2-1.0); BLOOD UREA NITROGEN,BUN 17 mg/dL (7-18); C-REACTIVE PROTEIN 0.75 mg/dL (<=0.30); CALCIUM 8.6 mg/dL (8.5-10.1); CARBON DIOXIDE,CO2 31 mmol/L (21-32); CHLORIDE,CL 104 mmol/L (98-107); CREATININE 0.9 mg/dL (0.55-1.02); GLUCOSE RANDOM 123 mg/dL (70-99); LIPASE 63 U/L (19-71); POTASSIUM,K 3.6 mmol/L (3.5-5.1); PROTEIN TOTAL,TP 6.7 g/dL (6.4-8.2); SODIUM,NA 143 mmol/L (136-145)
[2023-03-02 18:11] LABS: ANION GAP 11.6 mmol/L (5-15); ESTIMATED GFR 67 mL/min (>=60)
[2023-03-02] MEDS ORDERED: Pantoprazole 40 MG Tab.CR PO ONE (18:14)
[2023-03-02] MEDS ORDERED: Sucralfate 1 GM Tab PO SCH (18:15)
[2023-03-02] MEDS ORDERED: Pantoprazole 40 MG Tab.CR ONE (18:37)
[2023-03-02] MEDS ORDERED: Sucralfate 1 GM Tab ONE (18:38)
== END 2023-03-02 18:48 | disposition home or self-care (01) ==
LOC: VM.ED 16:59
DX: R10.13 Epigastric pain (principal); K21.9 Gastro-esophageal reflux disease without esophagitis; Z88.0 Allergy status to penicillin; Z86.16 Personal history of COVID-19
CPT/HCPCS: 36415; 80053; 81003; 83690; 85025; 86140; 99284; A9270